=== PATIENT | female | born 1950 | race Caucasian/White ===

== ENCOUNTER 2016-04-22 12:28 | Emergency (ER) | payer BC ==
[2016-04-22 12:36] VITALS: BP 138/60; PULSE 90; TEMP 97.8; BMI 39.0
[2016-04-22] MEDS ORDERED: traMADol HCL 50 MG TABLET PO ONE (13:08)
[2016-04-22] MEDS ORDERED: traMADol HCL 50 MG TABLET ONE (13:14)
--- NOTE | 2016-04-22 13:14 | PDOC ---
History of Present Illness - General Chief Complaint: Rash Stated Complaint: THROAT PAIN, BRUISE ON LT CHEST Time Seen by Provider: 04/22/16 12:44 History Source: Patient - History of Present Illness Timing/Duration: reports: other Location: reports: other (chest) Associated Symptoms: reports: rash Past History - Past Medical History Allergies/Adverse Reactions: Allergies Allergy/AdvReac Type Severity Reaction Status Date / Time No Known Allergies Allergy Verified 04/22/16 12:36 Home Medications: Ambulatory Orders Ibuprofen [Motrin] 800 mg PO TID #20 tablet 05/06/14 Meclizine HCl [Antivert -] 25 mg PO TID #60 tablet 05/06/14 Ondansetron [Zofran *Odt*] 4 mg SL TID #30 od.tablet 05/06/14 Tramadol HCl 50 mg PO Q6H #20 tablet MDD 200 04/22/16 Diabetes: Yes HTN: Yes Hypercholesterolemia: Yes - Psycho/Social/Smoking Cessation Hx Suicidal Ideation: No Smoking History: Unknown if ever smoked Hx Alcohol Use: No Drug/Substance Use Hx: No Review of Systems - Review of Systems Constitutional: No: Chills, Fever Integumentary: Yes: Rash *Physical Exam - Vital Signs Last Vital Signs Temp Pulse Resp BP Pulse Ox 97.8 F 90 18 138/60 97 04/22/16 12:32 04/22/16 12:32 04/22/16 12:32 04/22/16 12:32 04/22/16 12:32 - Physical Exam General Appearance: Yes: Appropriately Dressed. No: Apparent Distress HEENT: positive: Normal Voice Neck: positive: Supple Respiratory/Chest: negative: Respiratory Distress Integumentary: positive: Dry, Warm, Rash (crusted vesicular rash to L upper chest in C5 dermatome, c/w shingles, does not cross midline) Neurologic: positive: Fully Oriented, Alert, Normal Mood/Affect Medical Decision Making - Medical Decision Making 04/22/16 13:28 65 yo F, h/o HLD, HTN, DM , presents with pain to left side of chest. Patient reports that pain started approximately 12 days ago, described as burning in nature and radiates to L side of neck. Has since noticed a rash to site. No shortness of breath, diaphoresis, nausea, vomiting, fever or chills. Has been taking Tylenol and Motrin at home with no significant relief. Denies any trauma. Patient well-appearing and stable with crusted vesicular rash to upper left chest in C 5 dermatome, consistent with shingles. Given duration of symptoms and healing rash, no benefit w/ antivirals at this point. Will dc w/ pain control w/ weak opiod. 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 Myers erupcin rasheed estado presente por ms de 72 horas y rasheed comenzado a la corteza y curar, por lo tanto los medicamentos antivirales no proporcionar ningn beneficio. En judith punto, el tratamiento est dirigido al control del dolor hasta que la erupcin flor completamente. Print Language: BHUTANESE
== END 2016-04-22 13:25 | disposition home or self-care (01) ==
LOC: JERFT 12:28
DX: B02.9 Zoster without complications (principal); I10 Essential (primary) hypertension; E11.9 Type 2 diabetes mellitus without complications; E78.00 Pure hypercholesterolemia, unspecified
CPT/HCPCS: 99281-25

== ENCOUNTER 2021-12-13 17:44 | Emergency (ER) | payer BC ==
[2021-12-13 17:55] VITALS: RESP 19; TEMP 98.5; BMI 39.0
[2021-12-13 20:36] LABS: BASO % 0.5 % (0-2.0); EOS % 1.5 % (0-4.5); HEMATOCRIT 37.9 % (32.4-45.2); HEMOGLOBIN 12.1 GM/dL (10.7-15.3); LYMPH % 33.5 % (8-40); MCH 27.5 pg (25.7-33.7); MCHC 31.8 g/dl (32.0-36.0); MEAN CELL VOLUME 86.5 fl (80-96); MEAN PLT VOLUME 11.2 fl (7.5-11.1); MONO % 7.7 % (3.8-10.2); NEUT % 56.8 % (42.8-82.8); PLATELET COUNT 299 10^3/uL (134-434); RBC 4.38 M/mm3 (3.60-5.2); RDW 16.4 % (11.6-15.6); WHITE BLOOD COUNT 8.1 K/mm3 (4.0-10.0)
[2021-12-13 20:44] LABS: INR 1.01 (0.83-1.09); PROTHROMBIN TIME (PATIENT) 11.6 SEC (9.7-13.0)
[2021-12-13 20:47] LABS: ACTIVATED PTT 20.6 SECONDS (25.2-36.5)
[2021-12-13 21:02] LABS: BLOOD UREA NITROGEN 17.3 mg/dL (7-18); CALCIUM 9.8 mg/dL (8.5-10.1)
[2021-12-13 21:06] LABS: CREATININE 1.5 mg/dL (0.55-1.3)
[2021-12-13 23:06] VITALS: BP 136/68; PULSE 89
== END 2021-12-13 23:23 | disposition home or self-care (01) ==
LOC: JER 17:44
DX: G62.9 Polyneuropathy, unspecified (principal)
CPT/HCPCS: 36415; 70450-TC; 71045-TC-FY; 80048; 84484; 85025; 85610; 85730; 93005; 93010; 99285-25; C9803-CS; U0003; U0005